=== PATIENT | male | born 1975 | race Caucasian/White ===

== ENCOUNTER 2023-07-18 01:47 | Emergency (ER) | payer BC, MEDICAID ==
[~2023-07-18] VITALS: Ht 185.4 cm; Wt 89.8 kg
[2023-07-18] MEDS: IBUPROFEN 400 MG TABLET PO ONE (02:29)
[2023-07-18] MEDS ORDERED: IBUPROFEN 400 MG TABLET ONE (02:29)
[2023-07-18 03:29] VITALS: BP 116/79; TEMP 97.6; O2SAT 95
== END 2023-07-18 03:29 | disposition home or self-care (01) ==
LOC: ER 02:07
DX: R07.89 Other chest pain (principal)
CPT/HCPCS: 71045-TC

== ENCOUNTER 2023-07-22 21:22 | Emergency (ER) | payer BC, OTHER ==
[~2023-07-22] VITALS: Ht 185.4 cm; Wt 89.8 kg
[2023-07-22 21:28] VITALS: BP 123/77; TEMP 98.5; O2SAT 98
[2023-07-22] MEDS: IV NS 0.9% 1,000 ML BAG IV ONE (21:53)
[2023-07-22 22:03] LABS: BASOPHILS # (AUTO) 0.1 K/uL (0.0-0.2); BASOPHILS % (AUTO) 1.1 % (0.0-2.0); EOSINOPHILS # (AUTO) 0.8 K/uL (0.0-0.7); EOSINOPHILS % (AUTO) 5.9 % (0.0-6.0); HEMATOCRIT 40 % (39-51); HEMOGLOBIN 13.3 g/dL (13.5-17.5); LYMPHOCYTES # (AUTO) 2.4 K/uL (0.8-4.8); MEAN CORPUSCULAR HEMOGLOBIN 30 PG (26.0-33.0); MEAN CORPUSCULAR HGB CONC 33 g/dl (31.0-36.0); MEAN CORPUSCULAR VOLUME 92 fL (80-96); MONOCYTES # (AUTO) 1.3 K/uL (0.1-1.30); NEUTROPHILS # (AUTO) 8.7 K/uL (1.8-8.9); PLATELET COUNT (AUTO) 310 K/uL (150-450); RED BLOOD CELL COUNT(AUTO) 4.39 MIL/uL (4.5-6.0); RED CELL DISTRIBUTION WIDTH 14.2 % (11.5-15.0); WHITE BLOOD COUNT (AUTO) 13.4 K/uL (4.3-11.0)
[2023-07-22] MEDS ORDERED: KETOROLAC TROMETHAMINE 15 MG/ML VIAL ONE (22:05)
[2023-07-22 22:08] LABS: CALCIUM, SERUM 8.7 mg/dL (8.5-10.1); CREATININE 0.9 mg/dL (0.6-1.3); POTASSIUM 4.3 mmol/L (3.5-5.1)
[2023-07-22] MEDS: KETOROLAC TROMETHAMINE 15 MG/ML VIAL IV ONE (22:10)
[2023-07-22 22:14] LABS: ALBUMIN 3.1 g/dL (3.4-5.0); BILIRUBIN,DIRECT 0.1 mg/dL (0.0-0.2); BILIRUBIN,TOTAL 0.4 mg/dL (0.2-1.0); TOTAL PROTEIN, SERUM 7.6 g/dL (6.4-8.2)
== END 2023-07-22 23:00 | disposition left against medical advice (07) ==
LOC: ER 21:25
DX: R10.31 Right lower quadrant pain (principal); Z55.6 Problems related to health literacy
CPT/HCPCS: 99285; 96374; 96361; 93005; 85025; 80048; 83690; 80076; 36415; J7030; J1885